=== PATIENT | male | born 1990 | race Caucasian/White ===

== ENCOUNTER 2016-07-19 16:27 | Emergency (ER) | payer SELFPAY ==
[~2016-07-19] VITALS: Ht 182.9 cm; Wt 85.7 kg
[2016-07-19 16:32] VITALS: BP 124/78; PULSE 99; RESP 18; TEMP 98.3; O2SAT 98
[2016-07-19] MEDS ORDERED: KETOROLAC TROMETHAMINE 60 MG/2 ML VIAL IM ONE (17:00)
[2016-07-19] MEDS ORDERED: HYDROcodone/ACETAMIN 7.5-325 MG TAB PO ONE (17:45)
== END 2016-07-19 17:46 | disposition home or self-care (01) ==
LOC: SED 16:27 → EDSEX 16:27 → SED 17:46
DX: S90.32XA Contusion of left foot, initial encounter (principal); M94.0 Chondrocostal junction syndrome [Tietze]; M25.561 Pain in right knee; Z71.6 Tobacco abuse counseling; W13.2XXA Fall from, out of or through roof, initial encounter; Y93.89 Activity, other specified; Y92.89 Other specified places as the place of occurrence of the external cause; Y99.8 Other external cause status
CPT/HCPCS: 71100; 73610; 96372; 99284; J1885